=== PATIENT | female | born 1990 | race African-American/Black ===

== ENCOUNTER → 2019-02-14 | Emergency (ER) | payer MEDICAID ==
[~2019-02-14] VITALS: Ht 162.6 cm; Wt 108.9 kg
[~2019-02-14] MED LIST: IBU800 MG PO; ROBAXIN-750750 MG PO
--- NOTE | 2019-02-14 14:51 | Emergency Room Report ---
History of Present Illness General Chief Complaint: Lower Back Pain or Injury Source: Patient Present Illness HPI 28-year-old female with no significant past medical history here complaining of 1 week of low back pain without any fall or injury. Patient is rating her pain 5 out of 10 without radiation denying tingling and numbness. Denies urinary bowel incontinence and saddle paresthesia. Denies painful urination urinary frequency. Denies hematuria. Patient is morbidly obese. Denies a strenuous physical activity. Denies chest pain, shortness of breath, palpitation, abdominal pain, nausea vomiting. Has not taken medication for pain relief. Last menstrual period was a month ago and regular. Allergies: Coded Allergies: No Known Allergies (Unverified , 02/14/19) Patient History Past Medical History: see triage record Past Surgical History: unable to obtain Pertinent Family History: none Last Menstrual Period: JAN, 2019 Now: No Immunizations: UTD Reviewed Nursing Documentation: PMH: Agreed; PSxH: Agreed Nursing Documentation-PMH Past Medical History: No Stated History Review of Systems All Other Systems: negative except mentioned in HPI Physical Exam Vital Signs Date Time Temp Pulse Resp B/P (MAP) Pulse Ox O2 Delivery O2 Flow Rate FiO2 02/14/19 13:37 98.4 85 16 122/83 (96) 99 Room Air Sp02 EP Interpretation: reviewed, normal General Appearance: no apparent distress, alert, GCS 15, non-toxic, obese Head: normocephalic, atraumatic Eyes: bilateral eye normal inspection, bilateral eye PERRL ENT: hearing grossly normal, normal pharynx, no angioedema, normal voice Neck: full range of motion, supple/symm/no masses Respiratory: chest non-tender, lungs clear, normal breath sounds, no wheezing, speaking full sentences Cardiovascular #1: normal inspection, normal peripheral pulses, regular rate, rhythm, no murmur Gastrointestinal: normal inspection, non tender, soft Genitourinary: no CVA tenderness Musculoskeletal: back normal, gait/station normal, normal range of motion, non- tender Neurologic: alert, oriented x3, responsive, motor strength/tone normal, sensory intact, speech normal Psychiatric: judgement/insight normal, memory normal, mood/affect normal, no suicidal/homicidal ideation Skin: no rash Lymphatic: no adenopathy Medical Decision Making PA Attestation All my diagnosis and treatment plans were reviewed ad discussed with my supervising physician Dr. Yost Diagnostic Impression: Primary Impression: Lumbar strain ER Course 28-year-old female with no significant past medical history here complaining of 1 week of low back pain without any fall or injury. Patient is rating her pain 5 out of 10 without radiation denying tingling and numbness. Denies urinary bowel incontinence and saddle paresthesia. Denies painful urination urinary frequency. Denies hematuria. Patient is morbidly obese. Denies a strenuous physical activity. Denies chest pain, shortness of breath, palpitation, abdominal pain, nausea vomiting. Has not taken medication for pain relief. Last menstrual period was a month ago and regular. Ddx considered but are not limited to: Lumbar spine sprain, strain, fracture, contusion, neuropathy Vital signs: are WNL, pt. is afebrile H&PE are most consistent with: lumbar strain ORDERS: ua and urine preg to rule out pyelonephritis and UTI no x-ray needed as patient not fall or injure herself. Robaxin, ibuprofen ER intervention: Ibuprofen DISCHARGE: At this time pt. is stable for d/c to home. Will provide printed patient care instructions, and any necessary prescriptions. Care plan and follow up instructions have been discussed with the patient prior to discharge. Follow-up with primary care provider weight loss advised as above therapy advised return to the emergency room if worsening symptoms Last Vital Signs Date Time Temp Pulse Resp B/P (MAP) Pulse Ox O2 Delivery O2 Flow Rate FiO2 02/14/19 13:37 98.4 85 16 122/83 (96) 99 Room Air Disposition: HOME, SELF-CARE Condition: Stable Scripts Ibuprofen (Ibu) 800 Mg Tablet 800 MG PO TID, #21 TAB Prov: Ricardo Slade 02/14/19 Methocarbamol* (ROBAXIN-750*) 750 Mg Tablet 750 MG PO TID, #21 TAB 0 Refills Prov: Ricardo Slade 02/14/19 Patient Instructions: Low Back Sprain With [facility] Additional Instructions: Take medication as directed follow-up with your primary care provider avoid strenuous physical activity weight loss advised Ricardo Slade Feb 14, 2019 14:51
[2019-02-14 14:59] LABS: APPEARANCE,URINE CLEAR; BILIRUBIN, URINE NEGATIVE (NEGATIVE); COLOR,URINE PALE YELLOW; GLUCOSE, URINE (UA) NEGATIVE (NEGATIVE); KETONES,URINE NEGATIVE (NEGATIVE); LEUKOCYTE ESTERASE ,URINE NEGATIVE (NEGATIVE); NITRITE,URINE NEGATIVE (NEGATIVE); PH,URINE 5 (4.5-8.0); PROTEIN,URINE NEGATIVE (NEGATIVE); UROBILINOGEN,URINE NORMAL MG/DL (0.0-1.0)
[2019-02-14 15:11] VITALS: BP 122/83
--- NOTE | 2019-02-14 15:11 | NUR ---
ED Nurse Note: Pt cleared by health care Provider for discharge. DC instructions/prescription was given and explained to pt and verbalized understanding of teachings. All medical deviecs such as ID band removed. Pt is AAO x4, ambulatory and left with all personal belongings.
== END | disposition home or self-care (01) ==
LOC: EMR 15:00
DX: S39.012A Strain of muscle, fascia and tendon of lower back, initial encounter (principal); E66.01 Morbid (severe) obesity due to excess calories; Z68.41 Body mass index [BMI] 40.0-44.9, adult; X58.XXXA Exposure to other specified factors, initial encounter; Y92.9 Unspecified place or not applicable
CPT/HCPCS: 81001; 81025; 99282